=== PATIENT | female | born 1935 | race Caucasian/White ===

== ENCOUNTER 2016-06-09 11:19 | Outpatient (CLI) | payer MEDICARE, OTHER ==
[2015-03-07 09:50] VITALS: BP 128/67
[2016-06-09 11:39] LABS: BASOPHILS % 0.4 (0.0-1.5); EOSINOPHILS % 1.9 % (0.0-6.8); LYMPHOCYTES # 1.4 # k/uL (0.6-4.0); MEAN CORPUSCULAR HEMOGLOBIN 31.3 pg (28.0-34.0); MONOCYTES # 0.3 # k/uL (0.0-0.9); MONOCYTES % 5.6 % (0.0-11.0); NEUTROPHILS # 3.4 # k/uL (1.4-7.7)
[2016-06-09 11:59] LABS: eGFR (African) > 60; eGFR (Non-African) > 60
== END 2016-06-09 11:20 ==
LOC: LAB 11:19
PROVIDERS: ATTEND Family Medicine
DX: R63.4 Abnormal weight loss (principal); R73.9 Hyperglycemia, unspecified
CPT/HCPCS: 36415; 80053; 83036; 84443; 85025

== ENCOUNTER 2016-07-11 14:50 | Outpatient (CLI) | payer MEDICARE, OTHER ==
[2015-03-07 09:50] VITALS: BP 128/67
--- NOTE | 2016-07-12 14:58 | OP Clinic Progress Note ---
REFERRING PHYSICIAN: Dr. Nadia Farrell REASON FOR VISIT: This 81-year-old lady is seen accompanied by her . She describes a variety of types of dizziness. One aspect seems to be when she stands up and is lightheaded and may wobble when she takes her first several steps and it has gotten somewhat worse. It principally began shortly ago when she had an episode of her blood pressure being elevated. She also has an irregular heartbeat and bradycardia by history. She has a pacemaker in. This usually beats at about 60 to 61. She has an irregular pulse I think of her own that might be at 41 in the morning by her 's history. She is accompanied by her . The patient contributes written history, which is very nice in detail, but almost all the verbal history is contributed by the patient's . The patient has worn hearing aids for about 7 years. The eardrums and ear canals are clear. There is no wax and there is fluid behind the middle ear. Both eardrums look a little stiff and retracted. The patient has not been able to exercise somewhat recently. She also tends to be a little unstable when she is walking in a grocery store. She puts her hands on some furniture in the house when she is walking but by history, she has not fallen and does not generally feel stable. She feels very unsure of herself and this is stated by her . IMPRESSION: The overall impression is that a fair portion of this may be associated with cardiovascular, particularly in the areas that seem to bother her the most when she is standing and then begins to walk. PLAN: I recommended that she go back to physical therapy and have some cardiovascular strengthening exercises, walking and leg strengthening, and also some balance stabilizing exercises and maneuvers that can be done where she can be improved in that regard. I have also asked her to have some physical therapy on her neck for improvement of the neck muscles with heat and diathermy that can improve some of the circulation in the posterior fossa and get some improvement. She could be considered for a small myringotomy in the ears, but I would not tend to do that at this point in time. I apologize there is not a clear diagnosis in this regard. I do not think that she has benign positional vertigo and it seems like she had some testing in the Physical Therapy Department here and most of that testing was negative by their history. Again, a fair portion of this seems to be cardiovascular in etiology. There could be a very small amount of stiffening of the eardrums associated with some of the posterior neck circulation. Again, the recommendation is to take this somewhat piecemeal with some cardiovascular exercising and therapy through the Physical Training Department here at the hospital, and I will see her back in about 3 weeks to see how that is coming along. cc: Dr. Nadia OVALLE
== END 2016-07-11 14:52 ==
LOC: ENT 14:50
PROVIDERS: ATTEND Otolaryngology
DX: R42 Dizziness and giddiness (principal)

== ENCOUNTER 2016-07-24 15:11 | Outpatient (CLI) | payer MEDICARE, OTHER ==
[2015-03-07 09:50] VITALS: BP 128/67
== END 2016-07-24 15:12 ==
LOC: CARD 15:11
PROVIDERS: ATTEND Internal Medicine Cardiovascular Disease
DX: R42 Dizziness and giddiness (principal)
CPT/HCPCS: G0463

== ENCOUNTER 2017-02-05 10:39 | Outpatient (CLI) | payer MEDICARE, OTHER ==
[2015-03-07 09:50] VITALS: BP 128/67
== END 2017-02-05 10:40 ==
LOC: CARD 10:39
PROVIDERS: ATTEND Internal Medicine Cardiovascular Disease
DX: I47.1 Supraventricular tachycardia (principal); Z95.0 Presence of cardiac pacemaker; E78.5 Hyperlipidemia, unspecified; I10 Essential (primary) hypertension
CPT/HCPCS: G0463

== ENCOUNTER 2017-02-26 08:54 | Outpatient (CLI) | payer MEDICARE, OTHER ==
[2015-03-07 09:50] VITALS: BP 128/67
== END 2017-02-26 08:55 ==
LOC: LAB 08:54
PROVIDERS: ATTEND Family Medicine
DX: E11.9 Type 2 diabetes mellitus without complications (principal)
CPT/HCPCS: 36415; 83036